=== PATIENT | female | born 1945 | race African-American/Black ===

== ENCOUNTER 2018-06-07 09:14 | Day surgery (SDC) | payer MEDICARE, BC ==
[2018-06-06 11:50] LABS: HEMATOCRIT 34.2 % (36.0-48.0); HEMOGLOBIN 11.5 g/dL (12-16); MCHC 33.6 g/dL (31.0-37.0); MCV 89.3 fL (80.0-100.0); MEAN PLATELET VOLUME 9.9 fL (7.4-10.4); RBC 3.83 10x6/uL (4.00-5.40); RDW 15.7 % (11.5-14.5); WBC 8.3 10x3/uL (4.8-10.8)
[2018-06-06 11:58] LABS: ANION GAP 12.3 mmol/L (8-16); CALCIUM 9.1 mg/dL (8.5-10.1); CARBON DIOXIDE 27.2 mmol/L (21.0-32.0); CREATININE - SERUM 1.3 mg/dL (0.6-1.3); POTASSIUM - SERUM 4.5 mmol/L (3.5-5.1)
[~2018-06-07] VITALS: Ht 172.7 cm; Wt 106.6 kg
--- NOTE | ~2018-06-07 | OP ---
PATIENT NAME: PASQUALE GARCIA MEDICAL RECORD: [id number] :43 LOCATION:D.OPS ADMISSION DATE: SURGEON: RAMONA HELLER MD DATE OF OPERATION: 06/07/2018 PREOPERATIVE DIAGNOSIS: Gastric polyp. 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 PROCEDURES: 1. Esophagogastroduodenoscopy with distal esophageal and antral biopsies. 2. Gastric antral polypectomy utilizing endoscopic mucosal resection. SURGEON: Ramona Heller MD PLATE STRAIGHTENER: None. BLOOD LOSS: Minimal. ANESTHESIA: General. COMPLICATIONS: None. The risks, possible complications and alternatives to the procedure were explained to the patient. She elects to proceed. OPERATIVE COURSE: The patient was conveyed to the operating room electively on 06/07/2018. General anesthesia was induced by the anesthesia staff. A bite block was inserted. A gastroscope was inserted into the mouth. It was advanced easily into the hypopharynx. The esophagus was easily intubated as were the stomach and duodenum. Upon withdrawal, retroflexed and angulus views were obtained. I advanced a sclerotherapy needle. I injected the base of the polyp, which was a 2 cm semi-pedunculated polyp. This submucosal injection consisted of epinephrine. I created a good pillow. I advanced an endoscopic snare and was able to snare the polyp utilizing the coagulation setting and then the cut mode. The polyp was grasped with an endoscopic retrieval net and was withdrawn out through the mouth. I re-endoscoped the patient's esophagus and stomach. Utilizing the argon plasma orthoptist to cauterize the tissue around the polypectomy site, I identified no definite polypoid tissue. The esophageal setting and the forced mode was utilized. Cold endoscopic biopsies of the antrum were performed to rule out H. pylori. It appeared the patient had some Giang esophagus. I biopsied the esophagogastric junction as well as on retroflexion some of the cardia. These biopsy sites bled and in order to create hemostasis, I utilized the argon plasma orthoptist with the esophageal setting and the forced mode. There was no further bleeding. I then unretroflexed the scope and removed it under direct vision. OPERATIVE REPORT [id number] PASQUALE GARCIA The patient was then extubated and conveyed to the post-anesthesia care unit where she was in stable condition. I plan to see her in my office in 2-3 weeks to review the results of the biopsies and depending on the results that we will determine when or if she needs a followup endoscopy by me. TRANSINT:[id number] Voice Confirmation ID: [id number] DOCUMENT ID: [id number] RAMONA HELLER MD at 1953 CC: TELLO TUBBS MD and VIRI VALENCIA [id number] DICTATION DATE: 06/07/18 1310 BLOW PIT HELPER: 06/07/18 1319 [facility] 06/07/18 [facility] [address] [place] [address]
[~2018-06-07 09:14] MED LIST: AMBIEN5 MG PO; BAYER CHEWABLE81 MG PO; CARAFATE1 G PO; CELEXA20 MG PO; DEPAKOTE ER500 MG PO; DUTOPROL 25-121 EACH PO; FISH OIL 1,0001 CA1 PO; GLUCOPHAGE500 MG PO; ISOSORBIDE MONO30 M1 PO; LASIX40 MG PO; LEVOXYL100 MCG PO; LIPITOR20 MG PO; LISINOPRIL10 MG PO; NAMENDA10 MG PO; PHENERGAN6.25 MG/5 PO; PROAIR HFA8.5 GM INH; PROTONIX40 MG PO; PYRIDOXINE HCL100 MG PO; SEROQUEL200 MG PO; ULTRAM50 MG PO; VITAMIN D3400 UNI1 PO; XALATAN 0.0052.5 ML EACH EYE; ZANAFLEX4 MG PO; ZYLOPRIM100 MG PO
[2018-06-07 10:49] VITALS: Ht 172.7 cm; Wt 106.6 kg
== END 2018-06-07 15:10 | disposition home or self-care (01) ==
LOC: D.OPS 09:14 → D.PAN 11:30 → D.OPS 15:10
PROVIDERS: Anesthesiology
DX: K31.7 Polyp of stomach and duodenum (principal); Z01.812 Encounter for preprocedural laboratory examination

== ENCOUNTER 2019-06-10 08:23 | Day surgery (SDC) | payer MEDICARE ==
[~2019-06-10] VITALS: Ht 172.7 cm; Wt 111.4 kg
[2019-06-10 09:05] LABS: HEMATOCRIT 30.2 % (36.0-48.0); HEMOGLOBIN 10.5 g/dL (12-16); MCH 30.3 pg (26.0-34.0); MCHC 34.8 g/dL (31.0-37.0); MEAN PLATELET VOLUME 10.7 fL (7.4-10.4); RBC 3.47 10x6/uL (4.00-5.40); RDW 14.9 % (11.5-14.5); WBC 9.1 10x3/uL (4.8-10.8)
[2019-06-10 09:15] LABS: ANION GAP 8.9 mmol/L (8-16); CALCIUM 9.7 mg/dL (8.5-10.1); CARBON DIOXIDE 32.3 mmol/L (21.0-32.0); CREATININE - SERUM 1.7 mg/dL (0.6-1.3); POTASSIUM - SERUM 4.2 mmol/L (3.5-5.1)
[2019-06-10] MEDS ORDERED: FAMOTIDINE PO (09:22)
[2019-06-10 09:29] VITALS: BP 148/65; Ht 172.7 cm; Wt 111.4 kg
--- NOTE | 2019-06-10 12:35 | NUR ---
PATIENT RECEIVED BACK FROM SURGERY, SHE IS EATING A FULL LIQUID TRAY WITH NO COMPLAINS OF N/V. MV
--- NOTE | 2019-06-10 13:00 | NUR ---
DC INSTRUCTIONS GIVEN TO PT/FAMILY. STATE UNDERSTANDING. DC'D IV CATH FULLY INTACT.
--- NOTE | 2019-06-14 11:08 | HP ---
PATIENT: PASQUALE GARCIA MEDICAL RECORD: [id number] ACCOUNT: [id number] LOCATION:DGENI : 43 ADMISSION DATE: 06/10/19 PCP: TELLO TUBBS HISTORY AND PHYSICAL EXAMINATION PRINCIPAL DIAGNOSIS: History of gastric polyps. HISTORY OF PRESENT ILLNESS: The patient has a history of gastric polyps as well as Giang esophagus. She is here to undergo surveillance upper endoscopy with biopsies and ablation of any recurrent gastric polyps with the argon plasma service line bus cleaner. She has had no dysphagia. No hematemesis. No melena. No hematochezia. SOCIAL HISTORY: Ex-smoker. ALLERGIES: No known drug allergies. HOME MEDICATIONS: Please see the nursing list. The patient is not on any blood thinners. PAST MEDICAL AND SURGICAL HISTORY: COPD, hypertension, gastroesophageal reflux, non-insulin dependent diabetes mellitus, hypothyroidism, on replacement therapy. PHYSICAL EXAMINATION: GENERAL: The patient does not appear acutely ill. She does not appear chronically ill. EARS: External ears appear normal. EYES: Extraocular movements are intact. NECK: Trachea is midline. CHEST: No intercostal retractions. PULMONARY: Nonlabored, no stridor. IMPRESSION: 1. History of Giang esophagus. 2. History of gastric polyps. PLAN: EGD, possible polypectomy, possible polyp ablation. Also, surveillance biopsies in the area of Giang's. TRANSINT:[id number] Voice Confirmation ID: [id number] DOCUMENT ID: [id number] RAMONA HELLER MD at 1108 CC: TELLO TUBBS MD [id number] DICTATION DATE: 06/10/19 1142 FOUNDATION ASSISTANT: 06/10/19 1153 [facility] 06/10/19 [facility] [address] [place] [address]
--- NOTE | 2019-06-14 11:08 | OP ---
PATIENT NAME: PASQUALE GARCIA MEDICAL RECORD: [id number] :43 LOCATION:D.OPS ADMISSION DATE: SURGEON: RAMONA HELLER MD DATE OF OPERATION: 06/10/2019 PREOPERATIVE DIAGNOSES: 1. History of Giang esophagus in need of surveillance. 2. History of gastric polyps. POSTOPERATIVE DIAGNOSES: 1. History of Giang esophagus in need of surveillance. 2. History of gastric polyps. 3. Possible some regression in the Giang esophagus. 4. Nine and new small gastric polyps. PROCEDURES: 1. Esophagogastroduodenoscopy with antral and distal esophageal biopsies for Giang's surveillance. 2. Endoscopic ablation of nine gastric polyps with the argon plasma ticket counter utilizing the esophageal setting in the forced mode. SURGEON: Ramona Heller MD MAP[employer]ODUCTS SUPERVISOR: None. BLOOD LOSS: Minimal. ANESTHESIA: IV sedation. COMPLICATIONS: None. The risks, possible complications and alternatives to the procedure were explained to the patient. She elects to proceed. ENDOSCOPIC COURSE: The patient was conveyed to the endoscopy suite electively on 06/10/2019. IV sedation was induced by the anesthesia staff. A bite block was inserted. A gastroscope was inserted into the mouth. It was advanced easily into the hypopharynx. The esophagus was easily intubated as were the stomach and duodenum. Upon withdrawal, retroflexed and angulus views were obtained. Antral biopsies were obtained. Distal esophageal biopsies were obtained. I then advanced into the stomach. The polyps were sessile and they were between 7 mm and 1.1 cm. None of these look suspicious and I did not believe that they needed to be biopsied. They were all ablated with the argon plasma ticket counter. I then desufflated the stomach. I withdrew the gastroscope under direct vision. I will see the patient in my office in 2-3 weeks and discuss the results of the biopsies. I will plan for her next surveillance upper endoscopy to take place in 3 years. TRANSINT:[id number] Voice Confirmation ID: [id number] DOCUMENT ID: [id number] OPERATIVE REPORT [id number] DELFINAPASQUALE CARTER KIERAN RAMONA HELLER MD at 1108 CC: TELLO TUBBS MD [id number] DICTATION DATE: 06/10/19 1240 [employer] ATTENDANT: 06/10/19 1849 [facility] 06/10/19 [facility] [address] [place] [address]
== END 2019-06-10 13:07 | disposition home or self-care (01) ==
LOC: D.OPS 08:23
PROVIDERS: Anesthesiology; ATTEND Surgery
DX: Z86.010 Personal history of colon polyps (principal); K22.70 Barrett's esophagus without dysplasia; Z01.812 Encounter for preprocedural laboratory examination; J44.9 Chronic obstructive pulmonary disease, unspecified; I10 Essential (primary) hypertension; K21.9 Gastro-esophageal reflux disease without esophagitis; E11.9 Type 2 diabetes mellitus without complications; E03.9 Hypothyroidism, unspecified